=== PATIENT | female | born 1990 | race Two or more races ===

== ENCOUNTER 2018-10-16 08:24 | Emergency (ER) | payer SELFPAY ==
[2018-10-16 08:32] VITALS: BP 108/69
--- NOTE | 2018-10-16 08:52 | ED Physician Documentation ---
History of Present Illness - Stated complaint Stated Complaint: SPITTING UP BLOOD - Chief complaint Chief Complaint: Heent - History obtained from History obtained from: Patient - History of Present Illness Timing: Today Pain level max: 0 Pain level now: 0 - Additonal information Additional information: 28-year-old female states that she "spit up blood" today. States it was two large clots. Has never had anything like this before. No recent nosebleeds that she is aware of. No trauma. No coughing. No vomiting. No sore throat. She does state that she took Plan B approximately a week ago, is concerned that she may be . Nothing makes any of this better or worse. Review of Systems Constitutional: denies: Fever, Chills Nose: denies: Rhinorrhea / runny nose, Congestion Throat: denies: Sore throat Cardiac: denies: Chest pain / pressure Respiratory: denies: Dyspnea, Cough GI: denies: Abdominal Pain, Vomiting, Diarrhea Skin: denies: Rash Musculoskeletal: denies: Neck pain, Back pain Neurologic: denies: Headache PD PAST MEDICAL HISTORY - Past Medical History Past Medical History: No - Past Surgical History Past Surgical History: No - Present Medications Home Medications: Ambulatory Orders Medication Instructions Recorded Confirmed No Known Home Medications 10/16/18 10/16/18 - Allergies Allergies/Adverse Reactions: Allergies Allergy/AdvReac Type Severity Reaction Status Date / Time No Known Drug Allergies Allergy Verified 10/16/18 08:32 - Living Situation Living Situation: reports: With family Living Arrangement: reports: At home - Social History Does the pt smoke?: No Does the pt have substance abuse?: No - Family History Family history: reports: Non contributory - Immunizations Immunizations are current?: Yes PD ED PE NORMAL - Vitals Vital signs reviewed: Yes - General General: Alert and oriented X 3, No acute distress, Well developed/nourished - HEENT HEENT: PERRL, Ears normal, Moist mucous membranes, Pharynx benign - Neck Neck: Supple, no meningeal sign, No adenopathy - Cardiac Cardiac: RRR - Respiratory Respiratory: No respiratory distress, Clear bilaterally - Abdomen Abdomen: Soft, Non tender, Non distended - Derm Derm: Warm and dry, No rash, Other (No petechiae) - Neuro Neuro: Alert and oriented X 3 - Psych Psych: Normal mood, Normal affect Results - Vitals Vitals: Vital Signs - 24 hr 10/16/18 08:29 Temperature 36.7 C Heart Rate 88 Respiratory 17 Rate Blood Pressure 108/69 O2 Saturation 100 Oxygen O2 Source Room air - Labs Labs: Laboratory Tests 10/16/18 08:45 Ur Specific [place] >=1.030 H Urine HCG, Qual POSITIVE PD MEDICAL DECISION MAKING - ED course Complexity details: reviewed results, re-evaluated patient, considered differential, d/w patient ED course: 28-year-old female present presents to the emergency department with blood clots today likely from her esophagus or posterior oropharynx. No coughing. No fevers. No visible bleeding. Positive test. Has an appointment with her doctor on 01 November. Patient counseled regarding signs and symptoms for which I believe and urgent re-evaluation would be necessary. Patient with good understanding of and agreement to plan and is comfortable going home at this time This document was made in part using voice recognition software. While efforts are made to proofread this document, sound alike and grammatical errors may occur. Departure - Departure Disposition: 01 Home, Self Care Clinical Impression: Oropharyngeal bleeding, Positive test Condition: Good Instructions: ED Care Follow-Up: your,doctor in 3 days. [Other] Comments: The cause of your symptoms is unclear today. Return if you worsen. Follow-up with your doctor for further evaluation and care. This should resolve today. Your test is positive today. You need to follow up with your doctor for further care and dating of your .
[2018-10-16] MEDS ORDERED: CHERRY SYRUP 10 ML UDC PO ONE (08:54)
[2018-10-16] MEDS ORDERED: DEXAMETHASONE 10 MG/ML VIAL PO STA (08:54)
[2018-10-16 08:58] LABS: HCG UR QUAL POSITIVE
== END 2018-10-16 09:10 | disposition home or self-care (01) ==
LOC: ED 08:24
DX: O20.9 Hemorrhage in early pregnancy, unspecified (principal); R04.1 Hemorrhage from throat; Z3A.00 Weeks of gestation of pregnancy not specified
CPT/HCPCS: 81025; 99282; 99283; A9270